=== PATIENT | male | born 1960 ===

== ENCOUNTER 2017-11-13 05:14 | Inpatient (IN) | payer OTHER ==
[~2017-11-13] VITALS: Ht 172.7 cm; Wt 78.5 kg
[2017-11-13] VITALS (12 sets, daily range): BP systolic 112–146; BP diastolic 68–81
[2017-11-13] MEDS ORDERED: oxyCONTIN 20mg tab ORAL ONE (06:00)
[2017-11-13] MEDS ORDERED: ceFAZolin 1gm in D5W 55ml IVP ONE (06:00)
[2017-11-13] MEDS ORDERED: celeBREX 200mg Cap **SURGERY PATIENTS ONLY ORAL ONE (06:00)
[2017-11-13] MEDS ORDERED: fentaNYL 100 mcg/2 mL IV ONE (06:20)
[2017-11-13] MEDS ORDERED: Midazolam 2mg/2ml Inj ONE (06:20)
[2017-11-13] MEDS ORDERED: Duramorph PF 5mg/10ml amp ONE (06:22)
[2017-11-13] MEDS ORDERED: Bupivacaine 0.5% Inj 30 ml vial INJ ONE (06:22)
[2017-11-13] MEDS ORDERED: NAPROXEN500 M2 ORAL (06:27)
[2017-11-13] MEDS ORDERED: CYCLOBENZAPRINE10 MG ORAL (06:27)
[2017-11-13] MEDS ORDERED: OMEPRAZOLE20 M2 ORAL (06:27)
[2017-11-13] MEDS ORDERED: OXYCODONE20 MG/1 M1 ORAL (06:27)
[2017-11-13] MEDS ORDERED: AMLODIPINE BESYL5 MG ORAL (06:27)
[2017-11-13] MEDS ORDERED: HYDROCHLOROTHIA25 MG ORAL (06:27)
[2017-11-13] MEDS ORDERED: Tranexamic Acid 1,000 MG in NS 65 ML IVPB SCH (06:30)
[2017-11-13] MEDS ORDERED: Propofol 200mg/20ml IV ONE (06:35)
[2017-11-13] MEDS ORDERED: Lidocaine 1% MPF 10mg/ml 5ml ONE (06:42)
[2017-11-13] MEDS ORDERED: Bupivacaine w/Epi 0.5% 30ml Vial INJ ONE (06:43)
[2017-11-13] MEDS ORDERED: NeoSporin Gu Irrig 1ml Amp IRRIG ONE (06:43)
[2017-11-13] MEDS ORDERED: Bacitracin 50000 Units Vial ONE (06:43)
--- NOTE | 2017-11-13 07:09 | Pre-Procedure Note/Attestation ---
Pre-Procedure Note/Attestation Complete Prior to Procedure Planned Procedure: left Procedure Narrative: Left total hip arthroplasty Indications for Procedure Pre-Operative Diagnosis: left hip arthritis Attestation I attest that I discussed the nature of the procedure; its benefits; risks and complications; and alternatives (and the risks and benefits of such alternatives ), prior to the procedure, with the patient (or the patient's legal sales account representative). I attest that, if there was a reasonable possibility of needing a blood transfusion, the patient (or the patient's legal sales account representative) was given the [facility] standardized written summary, pursuant to the [place] Bill[place] Blood Safety Act ([place] Health and Safety Code # 1645, as amended). I attest that I re-evaluated the patient just prior to the surgery and that there has been no change in the patient's H&P, except as documented below: NONE Fran Jacome MD Nov 13, 2017 07:08
[2017-11-13] MEDS ORDERED: Milk of Magnesia 30ml Ud ORAL PRN (07:15)
[2017-11-13] MEDS ORDERED: Norco 5mg/325mg tab ORAL PRN (07:15)
[2017-11-13] MEDS ORDERED: ePHEDrine 50mg/ml Inj ONE (07:53)
[2017-11-13] MEDS ORDERED: LR 1000ml 1,000 ML IVLG SCH (08:07)
--- NOTE | 2017-11-13 08:07 | Anethesia Preoperative Eval ---
Anesthesia Pre-op PMH/ROS General Date of Evaluation: Nov 13, 2017 Time of Evaluation: 06:55 Anesthesiologist: Hugo ASA Score: ASA 2 Mallampati Score Class I : Soft palate, uvula, fauces, pillars visible Class II: Soft palate, uvula, fauces visible Class III: Soft palate, base of uvula visible Class IV: Only hard plate visible Mallampati Classification: Class II Surgeon: Ayaz Diagnosis: L hip DJD Surgical Procedure: L total hip arthroplasty Anesthesia History: none Family History: no anesthesia problems Allergies: Coded Allergies: No Known Allergies (Unverified , 11/08/17) Medications: see eMAR Past Medical History Cardiovascular: Reports: HTN; Denies: CAD, [place], valve dz, arrhythmia, other Pulmonary: Denies: asthma, COPD, AUGUSTUS, other Gastrointestinal/Genitourinary: Reports: GERD - mild; Denies: CRI, ESRD, other Neurologic/Psychiatric: Reports: other - chronuic pain; Denies: dementia, CVA, depression/anxiety, TIA Endocrine: Denies: DM, hypothyroidism, steroids, other HEENT: Denies: cataract (L), cataract (R), glaucoma, QAGAN TAYAGUNGIN (L), QAGAN TAYAGUNGIN (R), other Hematology/Immune: Denies: anemia, DVT, bleeding disorder, other Musculoskeletal/Integumentary: Reports: DJD; Denies: OA, RA, DDD, edema, other PMH Narrative: as above PSxH Narrative: Laparoscopic cholecystectomy Anesthesia Pre-op Phys. Exam Physician Exam Last Vital Signs Date Time Temp Pulse Resp B/P (MAP) Pulse Ox O2 Delivery O2 Flow Rate FiO2 11/13/17 06:21 Room Air 11/13/17 06:05 97.5 66 18 138/81 (100) 95 97.5 Constitutional: NAD Neurologic: CN 2-12 intact Cardiovascular: RRR, no M/R/G Respiratory: CTA Gastrointestinal: S/NT/ND Airway Exam Mallampati Score: Class II MO: full Neck: flexible ROM: full Teeth: intact Dentures: no upper, no lower Anesthesia Pre-op A/P Labs see chart Studies Pre-op Studies: EKG - NSR Risk Assessment & Plan Assessment: ASA 2 Plan: SAB vs GA Status Change Before Surgery: No Pre-Antibiotics Drug: Ancef 2gr. Given Within 1 Hr of Incision: Yes Time Given: 07:32 Scott Arias MD Nov 13, 2017 08:07
[2017-11-13] MEDS ORDERED: Midazolam 2mg/2ml Inj IVP PRN (08:15)
[2017-11-13] MEDS ORDERED: Morphine Sulfate 2mg/ml Inj IVP PRN (08:15)
[2017-11-13] MEDS ORDERED: Meperidine 50mg/ml Inj(FOR RIGORS ONLY) IV PRN (08:15)
[2017-11-13] MEDS ORDERED: DiphenhydrAMINE 50mg/ml Inj IVP PRN (08:15)
[2017-11-13] MEDS ORDERED: Enoxaparin 40mg Inj SUBQ SCH (09:00)
--- NOTE | 2017-11-13 09:34 | Brief Operative Note ---
Immediate Post Operative Note Operative Note Chief Complaint: left hip pain Pre-op Diagnosis: left hip arthritis Procedure: left total hip arthroplasty Post-op Diagnosis: same as pre-op Findings: consistent w/pre-op dx studies Surgeon: md lenny Associate Media Director: brian geller Anesthesiologist: md william Anesthesia: general Specimen: yes Complications: none Condition: stable Fluids: ns Estimated Blood Loss: minimal Drains: none Implant(s) used?: Yes - nielsen and nephHeena Nina Nov 13, 2017 09:34
--- NOTE | 2017-11-13 09:57 | Immediate Post-Op Evaluation ---
Immediate Post-Op Evalulation Immediate Post-Op Evalulation Procedure: L total hip arthroplasty Date of Evaluation: Nov 13, 2017 Time of Evaluation: 09:57 IV Fluids: 2200 Blood Products: none Estimated Blood Loss: 250 Urinary Output: 300 Blood Pressure Systolic: 127 Blood Pressure Diastolic: 76 Pulse Rate: 81 Respiratory Rate: 20 O2 Sat by Pulse Oximetry: 99 Temperature (Fahrenheit): 97.6 Pain Score (1-10): 1 Nausea: No Vomiting: No Complications none Patient Status: reacts, patent, none Hydration Status: adequate Scott Arias MD Nov 13, 2017 09:57
--- NOTE | 2017-11-13 09:58 | Diagnostic Imaging Report ---
Indication: Intraoperative Technique: One view of the pelvis Comparison: none Findings: Single intraoperative radiograph demonstrates a left acetabular prosthetic cup and a left femoral broach. Air within the soft tissues related to the surgical exposure noted. There is a Victor catheter in place Impression: Intraoperative imaging, as described
[2017-11-13] MEDS ORDERED: HYDROmorphone 1mg/ml Carpuject SUBQ PRN (11:15)
[2017-11-13] MEDS: Docusate 100mg cap ORAL SCH ×2 (12:39→18:00)
[2017-11-13] MEDS ORDERED: D5 1/2NS w/KCl 20mEq 1,000 ML IV SCH (13:00)
--- NOTE | 2017-11-13 15:01 | Diagnostic Imaging Report ---
Indication: . Left total hip arthroplasty Technique: One view of the pelvis Comparison: 2 hours earlier Findings: Interim completion of left hip arthroplasty procedure, with a left hip arthroplasty prosthesis in place. This appears well aligned. Air within the soft tissues is likely related to the prior surgical exposure. There is a Victor catheter in place. Impression: Postoperative left hip, no unusual features
[2017-11-13] MEDS: ceFAZolin 2gm/50ml Premix 50 ML IV SCH ×2 (16:00→23:28)
--- NOTE | 2017-11-13 16:00 | Operative Note - Dictated ---
DATE OF OPERATION: 11/13/2017 PREOPERATIVE DIAGNOSIS: Left hip end-stage arthritis. POSTOPERATIVE DIAGNOSIS: Left hip end-stage arthritis. PROCEDURE: Total hip arthroplasty using Evangelista and Nephew system, size 7 a high-offset Anthology proximally porous-coated stem, size 52 mm R3 cup with two 25 mm screws, a 20-degree lip ultra cross-linked polyethylene, and a 36 mm +0 Oxinium head. SURGEON: Fran Jacome M.D. ACCOUNTING FILE CLERK: Heena Stone PA-C. ANESTHESIOLOGIST: Scott Arias M.D. ANESTHESIA: Spinal anesthesia. ESTIMATED BLOOD LOSS: Less than 100 mL. COMPLICATIONS: None. BRIEF HISTORY: The patient is a pleasant 57-year-old gentleman, who has had ongoing left hip arthritis. He failed nonoperative treatment. After full discussion of the risks and benefits of the surgery and complications associated with it including infection, bleeding, neurovascular complication, possibility of dislocation, possibility of leg length discrepancy, DVT, PEs, infection requiring revision arthroplasty, need for revision arthroplasty down the line because of his young age, and other complications that may arise including pain, antalgic gait, limping, and inability to do certain activities. He opted for surgical treatment as described above. OPERATIVE PROCEDURE: The patient was brought to the operating table and was placed supine. All pressure points were well-padded. Spinal anesthesia was induced and left hip was prepped and draped in usual sterile fashion. The patient was given preop antibiotics and tranexamic acid was given. The left hip was prepped and draped in usual sterile fashion after the patient was placed in right lateral decubitus position with all pressure points were well padded. A standard posterolateral incision to the hip was undertaken. The incision was taken through the subcutaneous tissue. The tensor fascia was opened, gluteal fascia was opened. Retractors were placed and the short external rotators were identified and they were released and piriformis was released and capsule was T'd. The hip was dislocated. The standard neck cut was performed approximately 1 cm proximal to the lesser trochanter. Once this was completed, the retractors were placed around the acetabulum. The labrum was resected. The 47 reamer was used to medialize slightly and then sequential reaming was performed all the way up to 52 mm and a 52 mm cup was well seated into the femur. Trialing was performed and 52 mm circumferential cup was then well seated. There was excellent stability and anteversion and inclination was excellent was approximately 45 degrees inclination and 35 degrees anteversion. Once this was completed, an arthritic cup was opened and the acetabulum was washed out using Simpulse irrigation and arthritic cup was then seated with excellent stability. The anteversion and inclination was recreated. At this point, two 25 mm screws were then placed superiorly and posteriorly. This was locked in without any complications. At this point, a 20-degree lipped poly insert was then locked in without any complications. Once this was completed, the stability of the poly was checked and appeared to be perfect and well locked in. At this point, care was given to the femur. The acetabular retractors were removed. The retractors were placed underneath the femur. Using a paper box cutter, the entry point was lateralized and canal finder was used to find the canal. Sequential broaching was performed all the way up to size 7. The x-rays were taken during this time to make sure best fit can be obtained. At this point, the broaching was performed up to size 7 and high-offset neck was then used. A standard 36 mm +0 head was used and the entire construct was reduced. There was excellent stability of the hip and leg lengths were equal as measured by the knees and medial malleolus and bottom of the foot. The hip was then placed through range of motion. There was excellent range of motion with full extension, full flexion. Stability was checked at 0, 30 degrees, 45 degrees, and 90 degrees of internal rotation. The patient was stable all the way up to 75 to 80 degrees internal rotation and there was excellent external rotation. At this point, the trial components were removed. The hip was thoroughly irrigated using Simpulse irrigation. Size 7 Anthology high-offset prosthesis was then placed in and trialing was performed with +0 36 mm head and appeared to be perfect. At this point, the trial heads were removed and Noland head was dried. An Oxinium 36 mm +0 head was then locked in without any complication and the entire construct was reduced. Range of motion, stability, and leg lengths were checked and appeared to be perfect. At this point, the x-rays were obtained and the hardwares were in excellent position and cup was in great position. Wounds were thoroughly irrigated using copious amount of fluid. The short external rotators were closed using #2 FiberWire sutures. The tensor fascia was closed using 0-5 Vicryl suture. The skin was closed using 2-0 Vicryl suture and 3-0 Monocryl suture. Dermabond was applied. The patient was taken to recovery room in stable condition. All lap counts and instrument counts were correct. Fran Jacome M.D. DR: SUSAN JOB#: [id number] CC: LETICIA
[2017-11-13] MEDS ORDERED: Cyclobenzaprine 10mg Tab ORAL PRN (21:00)
[2017-11-13] MEDS: oxyCONTIN 20mg tab ORAL SCH (21:07)
[2017-11-14 08:00] VITALS: BP 127/71
[2017-11-14 08:02] LABS: BASOPHILS % (AUTO) 0.7 % (0.0-2.0); EOSINOPHILS % (AUTO) 0.6 % (0.0-3.0); HEMATOCRIT 38.4 % (42.0-52.0); HEMOGLOBIN 12.9 G/DL (14.2-18.0); LYMPHOCYTES % (AUTO) 23.9 % (20.0-45.0); MEAN CORPUSCULAR VOLUME 91 FL (80-99); MONOCYTES % (AUTO) 8.9 % (1.0-10.0); NEUTROPHILS % (AUTO) 65.9 % (45.0-75.0); PLATELET COUNT 290 K/UL (150-450); RED BLOOD COUNT 4.22 M/UL (4.70-6.10); RED CELL DISTRIBUTION WIDTH 10.9 % (11.6-14.8)
--- NOTE | 2017-11-14 08:15 | Orthopedic Progress Note ---
Orthopedic - Progress Note Subjective Symptoms: improved - up walking with PT Objective Laboratory Tests Test 11/14/17 06:40 White Blood Count 9.0 K/UL (4.8-10.8) Red Blood Count 4.22 M/UL (4.70-6.10) L Hemoglobin 12.9 G/DL (14.2-18.0) L Hematocrit 38.4 % (42.0-52.0) L Mean Corpuscular Volume 91 FL (80-99) Mean Corpuscular Hemoglobin 30.6 PG (27.0-31.0) Mean Corpuscular Hemoglobin Concent 33.6 G/DL (32.0-36.0) Red Cell Distribution Width 10.9 % (11.6-14.8) L Platelet Count 290 K/UL (150-450) Mean Platelet Volume 8.7 FL (6.5-10.1) Neutrophils (%) (Auto) 65.9 % (45.0-75.0) Lymphocytes (%) (Auto) 23.9 % (20.0-45.0) Monocytes (%) (Auto) 8.9 % (1.0-10.0) Eosinophils (%) (Auto) 0.6 % (0.0-3.0) Basophils (%) (Auto) 0.7 % (0.0-2.0) Sodium Level Pending Potassium Level Pending Chloride Level Pending Carbon Dioxide Level Pending Blood Urea Nitrogen Pending Creatinine Pending Estimat Glomerular Filtration Rate Pending Glucose Level Pending Calcium Level Pending Last 24 Hour Vital Signs Date Time Temp Pulse Resp B/P (MAP) Pulse Ox O2 Delivery O2 Flow Rate FiO2 11/13/17 21:00 Room Air 11/13/17 20:00 97.7 63 19 135/70 (91) 98 97.7 11/13/17 13:35 97.2 11/13/17 12:33 97.2 11/13/17 12:00 97.2 66 18 112/74 (87) 98 97.2 11/13/17 11:35 97.6 74 18 121/68 (85) 96 97.6 11/13/17 11:20 97.2 75 16 124/71 (88) 100 97.2 11/13/17 10:40 98.0 73 14 137/81 99 Nasal Cannula 3 98.0 11/13/17 10:25 73 18 144/81 96 Nasal Cannula 3 11/13/17 10:10 71 17 140/76 99 Nasal Cannula 3 11/13/17 10:00 75 15 146/77 100 Nasal Cannula 3 11/13/17 09:57 207.7 81 20 99 11/13/17 09:51 74 14 127/76 100 Nasal Cannula 3 11/13/17 09:46 78 23 145/77 100 Simple Mask 6 11/13/17 09:41 97.5 89 20 142/76 100 Simple Mask 6 97.5 Intake and Output 11/13/17 11/14/17 19:00 07:00 Intake Total 2300 ml 500 ml Output Total 550 ml 1405 ml Balance 1750 ml -905 ml Intake Oral 500 ml IV Total 2300 ml Output Urine Total 300 ml 1405 ml Estimated Blood Loss 250 ml Laboratory Tests Test 11/14/17 06:40 White Blood Count 9.0 K/UL (4.8-10.8) Red Blood Count 4.22 M/UL (4.70-6.10) L Hemoglobin 12.9 G/DL (14.2-18.0) L Hematocrit 38.4 % (42.0-52.0) L Mean Corpuscular Volume 91 FL (80-99) Mean Corpuscular Hemoglobin 30.6 PG (27.0-31.0) Mean Corpuscular Hemoglobin Concent 33.6 G/DL (32.0-36.0) Red Cell Distribution Width 10.9 % (11.6-14.8) L Platelet Count 290 K/UL (150-450) Mean Platelet Volume 8.7 FL (6.5-10.1) Neutrophils (%) (Auto) 65.9 % (45.0-75.0) Lymphocytes (%) (Auto) 23.9 % (20.0-45.0) Monocytes (%) (Auto) 8.9 % (1.0-10.0) Eosinophils (%) (Auto) 0.6 % (0.0-3.0) Basophils (%) (Auto) 0.7 % (0.0-2.0) Sodium Level Pending Potassium Level Pending Chloride Level Pending Carbon Dioxide Level Pending Blood Urea Nitrogen Pending Creatinine Pending Estimat Glomerular Filtration Rate Pending Glucose Level Pending Calcium Level Pending Wound: clean, dry, intact Drains: none Neuro Status: normal Vascular Status: normal Additional Comments Xray excellent Assessment Post-op Diagnosis POD 1 Procedure Performed left total hip arthroplasty Plan Plan: PT, discharge plan - home on sunday with DME and services Heena Stone Nov 14, 2017 08:15
[2017-11-14 08:32] LABS: ANION GAP 6 mmol/L (5-15); BLOOD UREA NITROGEN 14 mg/dL (7-18); CALCIUM 8.2 MG/DL (8.5-10.1); CARBON DIOXIDE 32 MMOL/L (21-32); CHLORIDE 100 MMOL/L (98-107); CREATININE 0.7 MG/DL (0.55-1.30); POTASSIUM 3.8 MMOL/L (3.5-5.1); SODIUM 137 MMOL/L (136-145)
[2017-11-14] MEDS: oxyCONTIN 20mg tab ORAL SCH ×2 (08:49→20:36)
[2017-11-14] MEDS: celeBREX 200mg Cap **SURGERY PATIENTS ONLY ORAL SCH (08:50)
[2017-11-14] MEDS: Docusate 100mg cap ORAL SCH ×3 (08:50→17:19)
--- NOTE | 2017-11-14 11:16 | 48 Hour Post Anesthesia Eval ---
Post Anesthesia Evaluation Procedure: L total hip arthroplasty Date of Evaluation: Nov 14, 2017 Time of Evaluation: 11:15 Blood Pressure Systolic: 134 0: 64 Pulse Rate: 74 Respiratory Rate: 20 Temperature (Fahrenheit): 97.6 O2 Sat by Pulse Oximetry: 98 Airway: patent Nausea: No Vomiting: No Pain Intensity: 2 Hydration Status: adequate Cardiopulmonary Status: stable Mental Status/LOC: patient returned to baseline Follow-up Care/Observations: n/a Post-Anesthesia Complications: none Follow-up care needed: N/A Scott Arias MD Nov 14, 2017 11:16
[2017-11-14 12:00] VITALS: BP 147/81
[2017-11-14 16:00] VITALS: BP 129/79
[2017-11-14] MEDS: HYDROcodone/Acetamin 7.5/325 tab ORAL PRN (16:30)
[2017-11-14 20:00] VITALS: BP 139/69
--- NOTE | 2017-11-14 20:44 | General Progress Note ---
Assessment/Plan Status Narrative s/p thr perioperative bloodloss anemia historyofhyeprtenison Assessment/Plan PT OT DVT PROPHYALXIS \ PAINCONTROL MONITOR CLOSLEY Subjective Date patient seen: Nov 14, 2017 Time patient seen: 20:42 Constitutional: Reports: no symptoms HEENT: Reports: no symptoms Cardiovascular: Reports: no symptoms Respiratory: Reports: no symptoms Gastrointestinal/Abdominal: Reports: no symptoms Genitourinary: Reports: no symptoms Allergies: Coded Allergies: No Known Allergies (Unverified , 11/08/17) Objective Last 24 Hour Vital Signs Date Time Temp Pulse Resp B/P (MAP) Pulse Ox O2 Delivery O2 Flow Rate FiO2 11/14/17 20:36 98.4 11/14/17 16:00 98.4 90 19 129/79 (96) 97 98.4 11/14/17 12:00 99.0 81 18 147/81 (103) 95 99.0 11/14/17 11:16 207.7 74 20 98 11/14/17 09:00 Room Air 11/14/17 08:49 89 127/71 11/14/17 08:00 98.3 89 20 127/71 (89) 98 98.3 11/13/17 21:00 Room Air Intake and Output 11/13/17 11/14/17 19:00 07:00 Intake Total 2300 ml 500 ml Output Total 550 ml 1405 ml Balance 1750 ml -905 ml Intake Oral 500 ml IV Total 2300 ml Output Urine Total 300 ml 1405 ml Estimated Blood Loss 250 ml Laboratory Tests 11/14/17 06:40: White Blood Count 9.0, Red Blood Count 4.22L, Hemoglobin 12.9L, Hematocrit 38.4L , Mean Corpuscular Volume 91, Mean Corpuscular Hemoglobin 30.6, Mean Corpuscular Hemoglobin Concent 33.6, Red Cell Distribution Width 10.9L, Platelet Count 290, Mean Platelet Volume 8.7, Neutrophils (%) (Auto) 65.9, Lymphocytes (%) (Auto) 23.9, Monocytes (%) (Auto) 8.9, Eosinophils (%) (Auto) 0.6, Basophils (%) (Auto) 0.7, Sodium Level 137, Potassium Level 3.8, Chloride Level 100, Carbon Dioxide Level 32, Anion Gap 6, Blood Urea Nitrogen 14, Creatinine 0.7, Estimat Glomerular Filtration Rate > 60, Glucose Level 111H, Calcium Level 8.2L Height (Feet): 5 Height (Inches): 8.00 Weight (Pounds): 173 General Appearance: WD/WN Neck: non-tender Cardiovascular: normal rate, no JVD Respiratory/Chest: lungs clear Abdomen: soft Extremities: other - no clubbing James Clemente MD Nov 14, 2017 20:44
[2017-11-15] VITALS: BP 132/77
[2017-11-15 04:00] VITALS: BP 130/69
[2017-11-15 08:00] VITALS: BP 128/78
[2017-11-15 08:00] LABS: BASOPHILS % (AUTO) 1.4 % (0.0-2.0); EOSINOPHILS % (AUTO) 0.8 % (0.0-3.0); HEMATOCRIT 34.5 % (42.0-52.0); HEMOGLOBIN 11.6 G/DL (14.2-18.0); LYMPHOCYTES % (AUTO) 18.1 % (20.0-45.0); MEAN CORPUSCULAR VOLUME 90 FL (80-99); MONOCYTES % (AUTO) 7.8 % (1.0-10.0); NEUTROPHILS % (AUTO) 71.9 % (45.0-75.0); PLATELET COUNT 257 K/UL (150-450); RED BLOOD COUNT 3.82 M/UL (4.70-6.10); RED CELL DISTRIBUTION WIDTH 10.8 % (11.6-14.8); WHITE BLOOD COUNT 9.4 K/UL (4.8-10.8)
[2017-11-15] MEDS: Docusate 100mg cap ORAL SCH ×3 (08:32→17:11)
[2017-11-15] MEDS: celeBREX 200mg Cap **SURGERY PATIENTS ONLY ORAL SCH (08:32)
[2017-11-15] MEDS: oxyCONTIN 20mg tab ORAL SCH ×2 (08:32→21:09)
[2017-11-15] MEDS: Enoxaparin 40mg Inj SUBQ SCH (08:33)
--- NOTE | 2017-11-15 09:46 | Orthopedic Progress Note ---
Orthopedic - Progress Note Subjective Symptoms: c/o post-op hip pain Additional Comments doing well, sitting in the chair, eating well Objective Last 24 Hour Vital Signs Date Time Temp Pulse Resp B/P (MAP) Pulse Ox O2 Delivery O2 Flow Rate FiO2 11/15/17 09:00 Room Air 11/15/17 08:33 106 128/78 11/15/17 08:00 99.5 106 20 128/78 (95) 95 99.5 11/15/17 04:00 99.1 86 18 130/69 (89) 95 99.1 11/15/17 00:00 99.1 86 18 132/77 (95) 97 99.1 11/14/17 21:00 Room Air 11/14/17 20:36 98.4 11/14/17 20:00 97.9 84 19 139/69 (92) 97 97.9 11/14/17 16:00 98.4 90 19 129/79 (96) 97 98.4 11/14/17 12:00 99.0 81 18 147/81 (103) 95 99.0 11/14/17 11:16 207.7 74 20 98 Intake and Output 11/14/17 11/15/17 19:00 07:00 Intake Total 500 ml 480 ml Output Total 300 ml 625 ml Balance 200 ml -145 ml Intake Oral 500 ml 480 ml Output Urine Total 300 ml 625 ml # Voids 3 2 Laboratory Tests Test 11/15/17 07:10 White Blood Count 9.4 K/UL (4.8-10.8) Red Blood Count 3.82 M/UL (4.70-6.10) L Hemoglobin 11.6 G/DL (14.2-18.0) L Hematocrit 34.5 % (42.0-52.0) L Mean Corpuscular Volume 90 FL (80-99) Mean Corpuscular Hemoglobin 30.4 PG (27.0-31.0) Mean Corpuscular Hemoglobin Concent 33.7 G/DL (32.0-36.0) Red Cell Distribution Width 10.8 % (11.6-14.8) L Platelet Count 257 K/UL (150-450) Mean Platelet Volume 8.6 FL (6.5-10.1) Neutrophils (%) (Auto) 71.9 % (45.0-75.0) Lymphocytes (%) (Auto) 18.1 % (20.0-45.0) L Monocytes (%) (Auto) 7.8 % (1.0-10.0) Eosinophils (%) (Auto) 0.8 % (0.0-3.0) Basophils (%) (Auto) 1.4 % (0.0-2.0) Wound: clean, dry Drains: none Neuro Status: normal Vascular Status: normal Plan Plan: PT, pain management, discharge plan Additional Comments discharge home with home health or may need rehab. continue PT Dressing change today Fran Jacome MD Nov 15, 2017 09:46
[2017-11-15 12:00] VITALS: BP 125/77
[2017-11-15] MEDS: HYDROcodone/Acetamin 7.5/325 tab ORAL PRN ×2 (12:31→17:11)
[2017-11-15 16:00] VITALS: BP 142/77
[2017-11-15 20:00] VITALS: BP 147/69
[2017-11-16] VITALS: BP_SYST 114; BP_SYST 147; BP_DIAS 69
[2017-11-16 08:00] VITALS: BP 116/65
--- NOTE | 2017-11-16 08:08 | Orthopedic Progress Note ---
Orthopedic - Progress Note Subjective Symptoms: improved Objective Last 24 Hour Vital Signs Date Time Temp Pulse Resp B/P (MAP) Pulse Ox O2 Delivery O2 Flow Rate FiO2 11/16/17 00:00 98.5 81 18 114/69 (84) 95 98.5 11/15/17 21:00 Room Air 11/15/17 20:00 99.3 87 18 147/69 (95) 100 99.3 11/15/17 16:00 97.7 86 18 142/77 (98) 100 97.7 11/15/17 12:00 98.5 75 20 125/77 (93) 98 98.5 11/15/17 09:00 Room Air 11/15/17 08:33 106 128/78 Intake and Output 11/15/17 11/16/17 18:59 06:59 Intake Total 730 ml 600 ml Output Total 2 ml 1000 ml Balance 728 ml -400 ml Intake Oral 730 ml 600 ml Output Urine Total 2 ml 1000 ml # Voids 3 Wound: clean, dry, intact Drains: none Neuro Status: normal Vascular Status: normal Assessment Post-op Diagnosis POD 3 Procedure Performed left total hip arthroplasty Plan Plan: discharge to home Heena Stone Nov 16, 2017 08:08
--- NOTE | 2017-11-16 08:09 | Discharge Summary ---
Discharge Summary Hospital Course Date of Admission Nov 13, 2017 at 05:14 Date of Discharge Admitting Diagnosis left hip arthritis HPI David Leslie is a 57 year old male who was admitted on Nov 13, 2017 at 05 :14 for Traumatic Arthropathy, Left Hip Consultations MD Bryn Procedures Left ELENA Hospital Course benign Discharge Condition Upon Discharge: improving, stable Discharge Disposition Patient was discharged to Home with Home Health(06) Heena Stone Nov 16, 2017 08:09
[2017-11-16] MEDS: celeBREX 200mg Cap **SURGERY PATIENTS ONLY ORAL SCH (08:41)
[2017-11-16] MEDS: oxyCONTIN 20mg tab ORAL SCH (08:41)
[2017-11-16] MEDS: Docusate 100mg cap ORAL SCH ×2 (08:41→12:27)
[2017-11-16] MEDS: Enoxaparin 40mg Inj SUBQ SCH (08:42)
[2017-11-16] MEDS: HYDROcodone/Acetamin 7.5/325 tab ORAL PRN (10:48)
[2017-11-16 12:00] VITALS: BP 127/65
== END 2017-11-16 13:10 | disposition home health service (06) | DRG 470 ==
LOC: SDSOVERFLO 05:14 → 3E 11:00
PROC: 0SRB06A Replacement of Left Hip Joint with Oxidized Zirconium on Polyethylene Synthetic Substitute, Uncemented, Open Approach (ICD-10-PCS; principal; 2017-11-13 07:00)
DX: M16.12 Unilateral primary osteoarthritis, left hip (principal); D50.0 Iron deficiency anemia secondary to blood loss (chronic); I10 Essential (primary) hypertension
CPT/HCPCS: 36415; 72170; 80048; 85025; 86850; 86900; 86901; 86920; 87081; 94003; 94150; J2250